=== PATIENT | female | born 1985 | race Caucasian/White ===

== ENCOUNTER 2022-04-25 16:22 | Outpatient (REF) | payer OTHER, SELFPAY ==
[2022-04-26 12:45] LABS: Influenza A PCR POSITIVE (Negative); Influenza B PCR NEGATIVE (Negative); Resp Syncy Virus RNA Qual PCR NEGATIVE (Negative); SARS COV2 PCR INHOUSE NEGATIVE (Negative)
== END 2022-04-25 16:23 | disposition home or self-care (01) ==
LOC: HO.LAB 16:22
PROVIDERS: Visit Provider Nurse Practitioner Family
DX: Z20.822 Contact with and (suspected) exposure to COVID-19 (principal); R05.9 Cough, unspecified
CPT/HCPCS: 0241U

== ENCOUNTER 2022-10-19 09:29 | Outpatient (REF) | payer OTHER, SELFPAY ==
[2022-10-19 10:58] LABS: MANUAL DIFF FLAG NO
[2022-10-19 11:28] LABS: Appearance Urine Turbid; Color Urine Dark Yellow; Glucose Urine UA Negative (Negative); Leukocyte Esterase Urine Moderate (2+) (Negative); Nitrite Urine Negative (Negative); Specific Gravity - Urine >= 1.030 (1.005-1.025); UMIC TRIGGER UACC YES; Urine Blood Moderate (2+) (Negative); Urine Ketones Trace mg/dL (Negative); Urine Protein Trace mg/dL (Neg-Trace)
[2022-10-19 11:29] LABS: Basophils Percent Auto 0.5 % (0-2); Eosinophils Absolute Auto 0.1 X10*3/uL (0.0-0.4); Eosinophils Percent Auto 1.2 % (0-4); Hematocrit 42.2 % (37.0-47.0); Hemoglobin 13.8 g/dl (12.0-16.0); Imm Gran Abs Auto 0.02 X10*3/uL (0.00-0.03); Imm Gran Pct Auto 0.3 % (0.0-0.4); Lymphocytes Absolute Auto 1.6 X10*3/uL (1.2-4.9); Lymphocytes Percent Auto 27.1 % (20-40); Mean Corpuscular HGB Conc 32.7 g/dl (31.0-35.0); Mean Corpuscular Hemoglobin 29.3 pg (27.0-33.0); Mean Corpuscular Volume 89.6 fL (80.0-98.0); Mean Platelet Volume 11.7 fL (9.4-12.3); Monocytes Absolute Auto 0.4 X10*3/uL (0.1-1.2); Monocytes Percent Auto 6.4 % (2-11); Neutrophils Absolute Auto 3.9 x10*3/uL (2.0-8.3); Neutrophils Percent Auto 64.5 % (45-73); Platelet Count 202 X10*3/uL (160-400); Red Blood Count 4.71 X10*6/uL (4.20-5.50); Red Cell Distribution Width 12.8 % (11.0-16.0)
[2022-10-19 11:42] LABS: Alanine Aminotransferase 37 U/L (0-31); Albumin Level 4.3 g/dL (3.5-5.0); Alkaline Phosphatase 76 U/L (39-117); Anion Gap 14 (12-20); Aspartate Amino Transferase 32 U/L (5-31); Blood Urea Nitrogen 9 mg/dL (9-16); Calcium 9.5 mg/dL (8.4-10.2); Carbon Dioxide 24 mmol/L (22-29); Chloride 105 mmol/L (96-108); Cholesterol 191 mg/dL; Estimated Glomerular Filt Rate > 60; Glucose Fasting 95 mg/dL (60-99); HDL Cholesterol 65 mg/dL; LDL Cholesterol Calculated 114 mg/dl; Potassium 4.1 mmol/L (3.3-5.1); Sodium 139 mmol/L (135-145); Total Protein 7.1 g/dL (6.5-8.0); Triglycerides 63 mg/dL
[2022-10-19 11:47] LABS: Bacteria Urine 4+ (None Seen); Hyaline Casts Urine 0-2 /LPF (0-2); Squamous Epithelial Cell Urine >20 /HPF (0-2); UACC Culture Trigger YES; WBC Urine >50 /HPF (0-5)
[2022-10-19 12:00] LABS: TSH reflex Free T4 2.28 uIU/mL (0.32-4.0)
== END 2022-10-19 09:30 | disposition home or self-care (01) ==
LOC: HO.WFDLDS 09:29
PROVIDERS: Visit Provider Nurse Practitioner Family
DX: Z00.00 Encounter for general adult medical examination without abnormal findings (principal)
CPT/HCPCS: 36415; 80053; 80061; 81001; 84443; 85025; 87086

== ENCOUNTER 2023-03-15 09:46 | Outpatient (AMB) | payer OTHER, SELFPAY ==
[2023-03-15 09:52] VITALS: BP 112/70; PULSE 68; RESP 13; TEMP 36.6; O2SAT 99; BMI 40.5
--- NOTE | 2023-03-15 09:52 | MHC.PC.OV ---
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 Accompanied by: Self / Same As Patient Allergies Seasonal Allergies Allergy (Mild, Verified 03/15/23 10:30) Sinus Pressure Medication List - Last Reconciled 03/15/23 by Wilber Chaney CNP albuterol sulfate 90 mcg/actuation 2 puffs inhalation Q4-6H PRN buspirone 7.5 mg PO BID 30 days levonorgestrel-ethinyl estrad 0.1-20 mg-mcg (Vienva) 1 tab PO DAILY Tobacco use date assessed: 10/18/22 Dental Screening Dental Screen Date: 03/15/23 Did you have a dental visit in the last 12 months?: Yes Did you have a dental problem in the last 6 months where you did not have access to dental care?: No Was dental information given to patient?: Patient has dentist HPI HPI Comments History of Present Illness Details 37-year-old female presents for anxiety follow-up. Her last office visit was in October. She has been taking buspirone since September. She notes that she was seen by a psychiatrist about a month ago. Buspirone was increased to 15 mg twice day, she developed frequent urination and vertigo shortly after taking the first dose, she self adjusted to 7.5 mg twice daily and her symptoms subsided. She notes that her anxiety symptoms are currently well managed. She has been making lifestyle changes, including walking with improvement. She wishes to lose weight. She has an appointment with her psychiatrist today. She see a therapist every other week. She denies acute symptoms at this time. She notes that she has an appointment with [facility] REACT[facility] OPERATOR for a pap smear test next Sunday. She notes that her last pap smear test was 3 years ago: normal. [facility] Medical History Depression Anxiety Rosacea Optional surgery Surgical History H/O lumbar sympathectomy Family History Mother Thyroid disorder Father High blood pressure High cholesterol Diabetes Maternal Grandmother Diabetes High blood pressure High cholesterol Paternal Grandmother Cardiovascular disease Paternal Grandfather High blood pressure Diabetes Social History Housing: House Patient Tobacco Use Status: Never used Tobacco e-Cigarette/Vaping Use: Never Used service: No Current occupational status: employed Current occupation: [employer] Cognitive needs: No Hearing needs: No Vision needs: No Questionnaire PHQ-9 Over the last 2 weeks, how often have you been bothered by any of the following problems? 1. Little interest or pleasure in doing things: several days 2. Feeling down, depressed, or hopeless: not at all 3. Trouble falling or staying asleep, or sleeping too much: several days 4. Feeling tired or having little energy: several days 5. Poor appetite or overeating: several days 6. Feeling bad about yourself - or that you are a failure or have let yourself or your family down: not at all 7. Trouble concentrating on things, such as reading the newspaper or watching television: not at all 8. Moving or speaking so slowly that other people could have noticed. Or the opposite - being so fidgety or restless that you have been moving around a lot more than usual: not at all 9. Thoughts that you would be better off or of hurting yourself in some way: not at all Total score: 4 Depression Screening Interpretation: Negative Depression Screening Done: Yes Source: Developed by Drs. Claudio Irizarry, Kay Campbell, Justin Silva and colleagues, with an educational janusz from [employer]. Thrive Questionnaire Date Thrive assessed: 10/18/22 LISA-7 AMB Questionnaire LISA-7 Date LISA - 7 assessed: 03/15/23 Feeling nervous, anxious, or on edge: 1 = Several days Not being able to stop or control worryin = Several days Worrying too much about different things: 1 = Several days Trouble relaxin = Several days Being so restless that it is hard to sit still: 0 = Not at all Becoming easily annoyed or irritable: 1 = Several days Feeling afraid as if something awful might happen: 1 = Several days Total LISA-7 score (0-4 normal; 5-9 mild; 10-14 moderate; 15-21 severe): 6 Source: Developed by Drs. Claudio Irizarry, Kay Campbell, Justin Silva and colleagues, with an educational janusz from [employer]. Review of Systems Const Details: Const Denies chills, Denies fatigue, Denies fever(s), Denies headache(s) and Denies weakness ENT Denies dizziness and Denies headache(s) Card Denies chest pain, Denies lightheadedness, Denies dyspnea and Denies other (Palpitations) Resp Denies cough, Denies dyspnea, Denies wheezing and Denies other ( shortness of breath) GI Denies abdominal pain, Denies melena, Denies hematochezia, Denies change in bowel habits, Denies dyspepsia and Denies nausea Denies hematuria and Denies dysuria Musc Denies abnormal gait, Denies myalgias, Denies arthralgias, Denies numbness and Denies tingling Skin/Breast Denies rash, Denies unusual bruising and Denies wounds Neuro Denies abnormal gait, Denies dizziness, Denies headache(s), Denies memory loss, Denies numbness, Denies Sensory deficit (Neuro), Denies tingling and Denies weakness Psych Denies anxiety, Denies depression, Denies memory loss Endo Denies cold intolerance, Denies fatigue, Denies heat intolerance, Denies polydipsia and Denies polyuria Aller/Immun Denies wheezing Physical exam (Primary Care) Vital Signs: Last Vital Signs Temp 97.8 F 03/15/23 09:52 Pulse 68 03/15/23 09:52 Resp 13 03/15/23 09:52 BP 112/70 03/15/23 09:52 Pulse Ox 99 03/15/23 09:52 Oxygen Delivery Method Room Air 03/15/23 09:52 BMI result Body Mass Index 40.5 Tobacco/Smoking Status: Tobacco use Status Tobacco use date assessed 10/18/22 03/15/23 10:00 Patient Tobacco Use Status Never used Tobacco 03/15/23 10:00 e-Cigarette/Vaping Use Never Used 03/15/23 10:00 PHQ-9: PHQ-9 Score PHQ-9: Total score 4 03/15/23 10:32 Depression Screening Interpretation: Negative Thrive Assessment: Date of Thrive Assessment Date Thrive assessed 10/18/22 03/15/23 10:00 Const Other: General: no acute distress and well developed Nutritional Appearance: well nourished Orientation/consciousness: patient oriented x3 HENMT Head: Yes normocephalic and Yes atraumatic Eyes General: appearance normal, both eyes and all related structures Pupils: Equal, round and reactive pupils present EOM: EOMs intact bilaterally Resp Effort & Inspection: normal respiratory effort Auscultation: clear to auscultation bilaterally Cardio Rate: regular rate Rhythm: regular rhythm Heart sounds: S1 normal heart sound present, S2 normal heart sound present, no gallops, no murmurs and no rubs GI Palpation (GI): No Abdominal aortic bruit present, Soft to palpation, nontender, No hepatosplenomegaly present and No Rebound tenderness present Auscultation: normal bowel sounds General: Yes no CVA tenderness Back/Spine/Pelvis Back: no CVA tenderness Cervical Spine: cervical ROM normal and No Cervical spine tenderness Thoracic/Lumbar Spine: thoraco-lumbar ROM normal, No pain with thoraco-lumbar ROM, No thoracic spinal tenderness and No lumbar spinal tenderness Extrem General: Yes normal to inspection, No edema and No calf tenderness Skin General: warm and dry. Normal skin color. Normal skin turgor Lesions: no lesions Rashes: no rashes Trauma: no lacerations or abrasions Wounds: no wounds Nails: normal Neuro General: patient oriented x3, gait normal and no focal neuro deficit Cranial nerves: Yes Equal, round and reactive pupils present Cognition (Neuro): normal cognition Gait exam (Neuro): Normal gait present Sensory Exam: No Sensory deficit (Neuro) Psych Appearance: grossly normal Affect: normal affect Attitude: cooperative Thought process: Normal thought process present Assessment and Plan Assessment & Plan (1) Anxiety: Code(s): F41.9 - Anxiety disorder, unspecified Plan: LISA-7 score reveals mild anxiety. PHQ-9 score is normal Continue to take buspirone as prescribed Routine exercise encouraged Follow-up with therapist and psychiatrist as planned Return with worsening or new symptoms Verbalized understanding and agreed with treatment plan. (2) Transaminitis: Code(s): R74.01 - Elevation of levels of liver transaminase levels Plan: Recent urinalysis and labs were unremarkable except for slightly elevated AST and ALT, 32 and 37 respectively Likely hepatic steatosis Will recheck liver panel. Advised to fast for 10-12 hours before getting blood work done Follow-up for telehealth visit in 2-4 weeks Return with symptoms or concerns Verbalized understanding and agreed with treatment plan. (3) Morbid obesity with BMI of 40.0-44.9, adult: Code(s): E66.01 - Morbid (severe) obesity due to excess calories; Z68.41 - Body mass index [BMI] 40.0-44.9, adult Plan: She weighs 214 lb, BMI is 40.5; 5 lb weight gain since last visit She wishes to lose weight and has been making lifestyle changes, including walking Healthy diet and routine exercise encouraged Referred to with management Return with symptoms or concerns Verbalized understanding and agreed with treatment plan. Orders: Orders Liver Panel Today R74.01 - Elevation of levels of liver transaminase levels Referrals Medical Weight Management Referral E66.01 - Morbid (severe) obesity due to excess calories, Z68.41 - Body mass index [BMI] 40.0-44.9, adult Coding Level of Care Code Est Pt Level 3 (66682) Diagnoses Anxiety F41.9 Transaminitis R74.01 Morbid obesity with BMI of 40.0-44.9, adult E66.01; Z68.41
== END 2023-03-15 10:49 | disposition home or self-care (01) ==
PROVIDERS: PCP Nurse Practitioner Family; Visit Provider Nurse Practitioner Family
DX: F41.9 Anxiety disorder, unspecified (principal); R74.01 Elevation of levels of liver transaminase levels; E66.01 Morbid (severe) obesity due to excess calories; Z68.41 Body mass index [BMI] 40.0-44.9, adult
CPT/HCPCS: 96127; 99213

== ENCOUNTER 2023-03-19 09:20 | Outpatient (REF) | payer OTHER, SELFPAY ==
[2023-03-19 12:41] LABS: Alanine Aminotransferase 21 U/L (0-31); Albumin Level 4.2 g/dL (3.5-5.0); Alkaline Phosphatase 58 U/L (39-117); Aspartate Amino Transferase 21 U/L (5-31); Bilirubin Direct 0.2 mg/dL (0.0-0.5); Bilirubin Total 0.6 mg/dL (0.0-1.0); Total Protein 7.1 g/dL (6.5-8.0)
== END 2023-03-19 09:21 | disposition home or self-care (01) ==
LOC: HO.WFDLDS 09:20
PROVIDERS: Visit Provider Nurse Practitioner Family
DX: R74.01 Elevation of levels of liver transaminase levels (principal)
CPT/HCPCS: 36415; 80076

== ENCOUNTER 2023-04-16 16:11 | Outpatient (AMB) | payer OTHER, SELFPAY ==
--- NOTE | 2023-04-16 16:08 | MHC.PC.OV ---
Intake Visit Reasons: f/u labs Conference Organizer Required: No Allergies Seasonal Allergies Allergy (Mild, Verified 04/16/23 16:09) Sinus Pressure Tobacco use date assessed: 10/18/22 HPI HPI Comments History of Present Illness Details This is a telephonic telehealth visit for review of recent blood work. Patient's previous AST and ALT levels were slightly elevated, 32 and 37 respectively Liver panel was repeated and resulted normal She offers no complaints and denies acute symptoms. [facility], [facility] Medical History Depression Anxiety Rosacea Optional surgery Surgical History H/O lumbar sympathectomy Family History Mother Thyroid disorder Father High blood pressure High cholesterol Diabetes Maternal Grandmother Diabetes High blood pressure High cholesterol Paternal Grandmother Cardiovascular disease Paternal Grandfather High blood pressure Diabetes Housing: House Patient Tobacco Use Status: Never used Tobacco e-Cigarette/Vaping Use: Never Used service: No Current occupational status: employed Current occupation: [employer] Cognitive needs: No Hearing needs: No Vision needs: No Questionnaire Thrive Questionnaire Date Thrive assessed: 10/18/22 LISA-7 AMB Questionnaire LISA-7 Date LISA - 7 assessed: 03/15/23 Source: Developed by Drs. Claudio Irizarry, Kay Campbell, Justin Silva and colleagues, with an educational janusz from [employer]. Review of Systems Const Details: Const Denies chills, Denies fatigue, Denies fever(s), Denies headache(s) and Denies weakness ENT Denies dizziness and Denies headache(s) Card Denies chest pain, Denies lightheadedness, Denies dyspnea and Denies other (Palpitations) Resp Denies cough, Denies dyspnea, Denies wheezing and Denies other ( shortness of breath) GI Denies abdominal pain, Denies melena, Denies hematochezia, Denies change in bowel habits, Denies dyspepsia and Denies nausea Denies hematuria and Denies dysuria Musc Denies abnormal gait, Denies myalgias, Denies arthralgias, Denies numbness and Denies tingling Skin/Breast Denies rash, Denies unusual bruising and Denies wounds Neuro Denies abnormal gait, Denies dizziness, Denies headache(s), Denies memory loss, Denies numbness, Denies Sensory deficit (Neuro), Denies tingling and Denies weakness Psych Denies anxiety, Denies depression, Denies memory loss Endo Denies cold intolerance, Denies fatigue, Denies heat intolerance, Denies polydipsia and Denies polyuria Aller/Immun Denies wheezing Physical exam (Primary Care) Tobacco/Smoking Status: Tobacco use Status Tobacco use date assessed 10/18/22 04/16/23 16:11 Patient Tobacco Use Status Never used Tobacco 04/16/23 16:11 e-Cigarette/Vaping Use Never Used 04/16/23 16:11 Thrive Assessment: Date of Thrive Assessment Date Thrive assessed 10/18/22 04/16/23 16:11 Const Other: Telemedicine. No physical exam Telehealth Telehealth Location of provider rendering services: practice address Location of patient: address on file Patient Identification confirmed using: Name, : Yes Telehealth method: voice only Patient verbally consented to treatment: Yes Patient verbally consented to billing insurance company: Yes Patient informed of any privacy concerns related to visit: Yes Assessment and Plan Assessment & Plan (1) Transaminitis: Code(s): R74.01 - Elevation of levels of liver transaminase levels Plan: Patient's previous AST and ALT levels were slightly elevated, 32 and 37 respectively Liver panel was repeated and resulted normal Continue current treatment regimen Follow-up with psychiatrist and therapist as planned Advised to call the office and schedule an appointment for an extended physical exam next year Return sooner with symptoms or concerns Verbalized understanding and agreed with treatment plan Coding Level of Care Code Tele Est Pt Level 2 (10727) Diagnoses Transaminitis R74.01 Time Spent (min) 10
== END 2023-04-16 16:50 ==
LOC: HO.HMGFM 16:11
PROVIDERS: PCP Nurse Practitioner Family; Visit Provider Nurse Practitioner Family
DX: R74.01 Elevation of levels of liver transaminase levels (principal)
CPT/HCPCS: 99212